=== PATIENT | male | born 1970 | race Caucasian/White ===

== ENCOUNTER 2016-09-28 20:04 | Emergency (ER) | payer MEDICAID ==
--- NOTE | 2016-09-28 20:06 | EDPHY ---
H & P - Medical/Surgical History Hx Asthma: No Hx Chronic Respiratory Disease: No Hx Diabetes: No Hx Cardiac Disease: No Hx Renal Disease: No Hx Cirrhosis: No Hx Alcoholism: Yes Hx HIV/AIDS: No Hx Splenectomy or Spleen Trauma: No Other PMH: denies - Social History Smoking Status: Current every day smoker Alcohol Use: Heavy HPI/ROS: CHIEF COMPLAINT: Intoxication HISTORY OF PRESENT ILLNESS: The patient is an intoxicated 46 y/o male arriving via EMS from the [facility] because he could not ambulate. His breathalyzer read 476 there, which is too high to stay there per their protocol. He has been here 6 times in the last 3 months for intoxication. He has no complaints. He can't tell me when he last had something to drink and thinks PD brought him to the [facility] tonight. REVIEW OF SYSTEMS: A ten point review of systems was performed and is negative with the exception of the items mentioned in the HPI. (Merlyn Stevenson) - Medical/Surgical History PMH: Alcoholism (Merlyn Stevenson) - Social History Additional Social History: 1 pack/day cigarettes. Alcohol abuse. (Merlyn Stevenson) - Physical Exam Exam: General Appearance: Alert. Vital signs reviewed. Blood pressure 146/92. Heart rate 105. Eyes: Pupils equal and round, bilateral conjunctival injection, no discharge. Anicteric. ENT, Mouth: Mucous membranes are dry, no oropharyngeal erythema or edema. Neck: No lymphadenopathy, supple. Nontender to palpation over the cervical spine. Respiratory: Lungs are clear to auscultation; no wheezes, rales, or rhonchi. Cardiovascular: Tachycardic; no murmur, rub, or gallop. Gastrointestinal: Abdomen is soft and mildly diffusely tender without guarding , no masses or organomegaly, bowel sounds normal. Skin: Warm and dry, no rashes on exposed skin, normal color. Back: Nontender to palpation over the thoracolumbar spine. Extremities: No lower extremity edema, no calf tenderness or swelling. Neurological: Alert and oriented to self and hospital. Moving all four extremities easily and equally. Psychiatric: Intoxicated. (Merlyn Stevenson) Constitutional: Initial Vital Signs Temperature (C) 36.7 C 09/28/16 20:11 Heart Rate 105 H 09/28/16 20:11 Respiratory Rate 20 09/28/16 20:11 Blood Pressure 146/92 H 09/28/16 20:11 O2 Sat (%) 92 09/28/16 20:11 O2 Delivery Mode Room Air O2 (L/minute) 2 Allergies/Adverse Reactions: No Known Allergies Allergy (Verified 08/18/16 17:33) Home Medications: Medication Instructions Recorded NK [No Known Home Meds] 06/23/16 Medical Decision Making ED Course/Re-evaluation: 1:38 a.m.- The patient is able to ambulate with a steady gait. He will be discharged to the [facility]. (Karen Boone) This is a 46 y/o male with alcoholism who presents from the [facility] with alcohol intoxication. He was unable to ambulate at the [facility] and apparently exceeded their breathalyzer limit at 476, so they transferred him to the ED. He denies complaints to me. He is mildly tachycardic with dry mucous membranes and conjunctival injection on exam. Repeat Breathalyzer here shortly after registration was 399. He is on an [facility] hold. Plan to observe and discharge to the [facility] when ambulatory. Re-evaluated at 11:15 p.m.. He is more awake now. He is requesting Sprite. He has not yet been able to safely ambulate. When ambulatory he will be discharged to the [facility]. (Merlyn Stevenson) Differential Diagnosis: I considered a differential diagnosis of altered mental status including but not limited to hypoglycemia, infectious process, electrolyte abnormality, head injury and intoxicants. (Merlyn Stevenson) Departure - Departure Disposition: Home, Routine, Self-Care Clinical Impression: Alcoholic intoxication Qualifiers: Complication of substance-induced condition: uncomplicated Qualifier Code: ( F10.120) Alcohol abuse with intoxication, uncomplicated Condition: Good Instructions: Alcohol Intoxication (ED), Abuse of Alcohol (ED) Additional Instructions: Medically clear for the [facility]. Referrals: [facility] Detox 24 Hours [Outside] - As per Instructions [facility] [Outside] - As per Instructions Report Scribed for: Merlyn Stevenson Report Scribed by: Moira Ferrara Date of Report: 09/28/16 Time of Report: 20:13 Physician Review and Approval Statement: 09/28/16 20:06 Portions of this note were transcribed by the medical or surgical instrument maker. I, Dr. Merlyn Stevenson, personally performed the history, physical exam, and medical decision- making; and confirmed the accuracy of the information in the transcribed note. ( Merlyn Stevenson)
[2016-09-28 20:15] VITALS: TEMP 98.1
[2016-09-29 01:49] VITALS: BP 117/66; PULSE 86; RESP 14; O2SAT 90
== END 2016-09-29 02:13 | disposition home or self-care (01) ==
LOC: EDUNIT#
DX: F10.120 Alcohol abuse with intoxication, uncomplicated (principal); F17.210 Nicotine dependence, cigarettes, uncomplicated

== ENCOUNTER 2016-10-05 22:24 | Emergency (ER) | payer MEDICAID ==
--- NOTE | 2016-10-05 22:39 | EDPHY ---
H & P Stated Complaint: ETOH "withdrwal", last drink 20 min ago, drinking 5th Gin daily - Personal History Current Tetanus Diphtheria and Acellular Pertussis (TDAP): Yes - Medical/Surgical History Hx Asthma: No Hx Chronic Respiratory Disease: No Hx Diabetes: No Hx Cardiac Disease: No Hx Renal Disease: No Hx Cirrhosis: No Hx Alcoholism: Yes Hx HIV/AIDS: No Hx Splenectomy or Spleen Trauma: No Other PMH: denies - Social History Smoking Status: Current every day smoker Time Seen by Provider: 10/05/16 22:39 Constitutional: Initial Vital Signs Temperature (C) 36.4 C 10/05/16 22:29 Heart Rate 68 10/05/16 22:29 Respiratory Rate 18 10/05/16 22:29 Blood Pressure 122/95 H 10/05/16 22:29 O2 Sat (%) 95 10/05/16 22:29 O2 Delivery Mode Room Air Allergies/Adverse Reactions: No Known Allergies Allergy (Verified 08/18/16 17:33) Home Medications: Medication Instructions Recorded NK [No Known Home Meds] 06/23/16 Medical Decision Making ED Course/Re-evaluation: CHIEF COMPLAINT: Alcohol intoxication. HISTORY OF PRESENT ILLNESS: The patient is a chronic alcoholic living on the [address]. Patient drinks on a daily basis and obtains whatever alcohol is available. Patient was found by bystanders who called EMS system. Patient has had multiple ER visits over the last several years for the same complaint. Patient denies any injuries denies loss of consciousness denies any recent trauma. Patient denies co-ingestion. Patient denies suicidal or homicidal behavior. REVIEW OF SYSTEMS: A 10 point review of systems was performed and is negative with the exception of the elements mentioned in the history of present illness. PHYSICAL EXAM: General Appearance: Alert, well hydrated, appropriate, and non-toxic appearing. Head: Atraumatic without scalp tenderness or obvious injury Eyes: Pupils equal, round, reactive to light and accommodation, EOMI, no trauma , no injection. Ears: Clear bilaterally, no perforation, normal landmarks Nose: Atraumatic, no rhinorrhea, clear. Throat: There is no erythema or exudates, no lesions, normal tonsils, mucus membranes moist. Neck: Supple, 2+ carotid upstroke, nontender, no lymphadenopathy. Respiratory: No retractions, no distress, no wheezes, and no accessory muscle use. Lungs are clear to auscultation bilaterally. Cardiovascular: Regular rate and rhythm, no murmurs, rubs, or gallops. Bilateral carotid, radial, dorsalis pedis, and posterior tibial pulses intact. Good capillary refill all extremities. Gastrointestinal: Abdomen is soft, nontender, non-distended, no masses, no rebound, no guarding, no peritoneal signs. Musculoskeletal: Normal active ROM of all extremities, atraumatic. Neurological: Alert, appropriate, and interactive. The patient has normal DTRs and non-focal cranial nerves, motor, sensory, and cerebellar exam. Skin: No rashes, good turgor, no nodules on palpation. PAST MEDICAL HISTORY: Alcohol abuse PAST SURGICAL HISTORY: Noncontributory SOCIAL HISTORY: Polysubstance abuser DIAGNOSTICS/PROCEDURES/CRITICAL CARE TIME: None necessary DIFFERENTIAL DIAGNOSIS: The differential diagnosis for the patient's altered mental status included but was not limited to hypoglycemia, infectious process, electrolyte abnormality, head injury, neurologic process, anemia, cardiac process, and intoxicants. MEDICAL DECISION MAKING: I serially examined this patient since the patient's arrival here in the emergency department. The patient continues to become more and more sober with each examination. I serially questioned the patient and the patient's story given initially has not changed. The patient still denies any trauma, any head injury, and any illicit drug use. At this point, the patient is walking the department freely and is clinically sober. We're discharging the patient to the [facility] in stable condition. (Howard Conley) 1237: re-evaluation at this time this patient ambulatory stable gait no ataxia clinically sober he is requesting go to detox. We will arrange this for him with [facility]. (Santana Griffith) Departure - Departure Disposition: Home, Routine, Self-Care Clinical Impression: Polysubstance abuse, Alcohol dependence, Alcoholic intoxication Condition: Good Referrals: NONE *PRIMARY CARE P,. [Primary Care Provider] - As per Instructions
[2016-10-06] MEDS ORDERED: CHLORDIAZEPOXIDE 25MG PREPK#6 BTL TAKEHOME ONE (00:37)
[2016-10-06 01:29] VITALS: BP 148/80; PULSE 82; RESP 16; TEMP 98.1; O2SAT 94
== END 2016-10-06 01:28 | disposition home or self-care (01) ==
LOC: EDUNIT#
DX: F10.229 Alcohol dependence with intoxication, unspecified (principal); F19.10 Other psychoactive substance abuse, uncomplicated; F17.200 Nicotine dependence, unspecified, uncomplicated

== ENCOUNTER 2016-10-21 02:19 | Emergency (ER) | payer MEDICAID ==
--- NOTE | 2016-10-21 02:44 | EDPHY ---
H & P HPI/ROS: HPI CHIEF COMPLAINT: Alcohol intoxication, head trauma HISTORY OF PRESENT ILLNESS: This patient 46-year-old male he is homeless, denies any significant medical history she is tells me that he drank vodka this evening. He somehow injured his head. Does not recall the exact events he thinks he fell on his head. Presents emergency room he is alert and orient x4, GCS 15, he has been placed in a cervical collar for cervical spine immobilization case he has neck trauma. He has an obvious hematoma to the posterior occiput on the left side. He is slurring his speech and is obviously intoxicated. Denies drug use. Denies pain anywhere. Past Medical History: Denies any medical history Past Surgical History: Denies any surgical history Social History: drank alcohol this evening, daily alcohol use, alcoholism, homelessness Family History: Noncontributory ROS REVIEW OF SYSTEMS: A comprehensive 10 point review of systems is otherwise negative aside from elements mentioned in the history of present illness. Exam Constitutional intoxicated with alcohol, triage nursing summary reviewed, vital signs reviewed, awake/alert. Eyes normal conjunctivae and sclera, EOMI, Horizontal beating nystagmus consistent with acute alcohol intoxication. HENT head/neck: Hematoma noted to the left occiput. Neck exam, no midline step-offs, no crepitus, in cervical collar. moist mucus membranes, no epistaxis , neck supple/ no meningismus, no raccoon eyes. Respiratory clear to auscultation bilaterally, normal breath sounds, no respiratory distress, no wheezing. Cardiovascular rate normal, regular rhythm, no murmur, no edema, distal pulses normal. Gastrointestinal soft, non-tender, no rebound, no guarding, normal bowel sounds, no distension, no pulsatile mass. Genitourinary no CVA tenderness. Musculoskeletal no midline vertebral tenderness, full range of motion, no calf swelling, no tenderness of extremities, no meningismus, good pulses, neurovascularly intact. Skin pink, warm, & dry, no rash, skin atraumatic. Neurologic awake, alert and oriented x 3, AAOx3, moves all 4 extremities equally, motor intact, sensory intact, CN II-XII intact, normal cerebellar, normal vision, slurring speech Psychiatric normal mood/affect. Heme/Lymph/Immune no lymphadenopathy. Differential Diagnosis: Includes but is not limited to in a particular order acute alcohol intoxication,, alcohol abuse, trauma including head trauma, cervical spine trauma Medical Decision Making: this patient had an IV established receive fluids Bolus , will check alcohol level, he will have a CT scan of his head and neck due to trauma. Re-evaluation: CT scan of the head without IV contrast. The results of the study are negative for acute traumatic injury. The study was read by Dr. Benjamin I viewed the images myself on the PACS system. CT scan of the cervical spine without IV contrast. The results of the study are negative for acute traumatic injury The study was read by Dr. Benjamin I viewed the images myself on the PACS system. 0510: re-examination patient is sitting up in bed is, cooperative. He is not slurring his speech he appears clinically sober. I have cleared his cervical spine as he has no midline tenderness in his CT scan was unremarkable. He has no complaints he is agreeable for discharge. He ambulated well without any difficulty. He understands to refrain from drinking this much alcohol. 0528: this patient ambulated well throughout the emergency room is clinically sober. Steady gait. He will be discharged from the ER when it slight out at 6: 30 a.m.. I did offer him to go to the [facility] however he has declined. He would like to be discharged to the streets he is homeless. Source: Patient, EMS - Medical/Surgical History Hx Asthma: No Hx Chronic Respiratory Disease: No Hx Diabetes: No Hx Cardiac Disease: No Hx Renal Disease: No Hx Cirrhosis: No Hx Alcoholism: Yes Hx HIV/AIDS: No Hx Splenectomy or Spleen Trauma: No Other PMH: denies - Social History Smoking Status: Current every day smoker Constitutional: Initial Vital Signs Temperature (C) 36.4 C 10/21/16 02:30 Heart Rate 68 10/21/16 02:30 Respiratory Rate 16 10/21/16 02:30 Blood Pressure 118/83 H 10/21/16 02:30 O2 Sat (%) 91 L 10/21/16 02:30 O2 Delivery Mode Nasal Cannula O2 (L/minute) 2 Allergies/Adverse Reactions: No Known Allergies Allergy (Verified 10/21/16 02:45) Home Medications: Medication Instructions Recorded NK [No Known Home Meds] 06/23/16 Medical Decision Making - Data Points Laboratory Results: Laboratory Results 10/21/16 03:00 10/21/16 03:00 10/21/16 03:00 WBC 3.65 L 10^3/uL (3.80-9.50) RBC 4.29 L 10^6/uL (4.40-6.38) Hgb 14.9 g/dL (13.7-17.5) Hct 42.3 % (40.0-51.0) MCV 98.6 fL (81.5-99.8) MCH 34.7 H pg (27.9-34.1) MCHC 35.2 g/dL (32.4-36.7) RDW 13.4 % (11.5-15.2) Plt Count 133 L 10^3/uL (150-400) MPV 8.7 fL (8.7-11.7) Neut % (Auto) 41.0 % (39.3-74.2) Lymph % (Auto) 38.4 % (15.0-45.0) [place] % (Auto) 12.9 % (4.5-13.0) Eos % (Auto) 6.3 % (0.6-7.6) Baso % (Auto) 1.1 % (0.3-1.7) Nucleat RBC Rel Count 0.0 % (0.0-0.2) Absolute Neuts (auto) 1.50 L 10^3/uL (1.70-6.50) Absolute Lymphs (auto) 1.40 10^3/uL (1.00-3.00) Absolute Monos (auto) 0.47 10^3/uL (0.30-0.80) Absolute Eos (auto) 0.23 10^3/uL (0.03-0.40) Absolute Basos (auto) 0.04 10^3/uL (0.02-0.10) Absolute Nucleated RBC 0.00 10^3/uL (0-0.01) Immature Gran % 0.3 % (0.0-1.1) Immature Gran # 0.01 10^3/uL (0.00-0.10) Sodium 148 H mEq/L (134-144) Potassium 3.7 mEq/L (3.5-5.2) Chloride 111 H mEq/L (97-110) Carbon Dioxide 26 mEq/l (22-31) Anion Gap 11 mEq/L (8-16) BUN 10 mg/dL (7-23) Creatinine 0.7 mg/dL (0.7-1.3) Estimated GFR > 60 Glucose 100 mg/dL (70-100) Calcium 8.6 mg/dL (8.5-10.4) Ethyl Alcohol 322 H mg/dL (0-10) Medications Given: Discontinued Medications Sodium Chloride (Ns) 1,000 mls @ 0 mls/hr IV ONCE ONE PRN Reason: Wide Open Stop: 10/21/16 02:49 Last Admin: 10/21/16 03:00 Dose: 1,000 mls Departure - Departure Disposition: Home, Routine, Self-Care Clinical Impression: Alcoholic intoxication Qualifiers: Complication of substance-induced condition: uncomplicated Qualifier Code: ( F10.120) Alcohol abuse with intoxication, uncomplicated Condition: Good Instructions: Alcohol Intoxication (ED), Abuse of Alcohol (ED), Fall Prevention (ED), Fall Prevention for Older Adults (ED) Referrals: NONE *PRIMARY CARE P,. [Primary Care Provider] - As per Instructions
[2016-10-21 02:48] VITALS: RESP 16
[2016-10-21] MEDS ORDERED: NS 1,000 ML IV ONE (02:48)
[2016-10-21 03:20] LABS: % IMMATURE GRANULYOCYTES 0.3 % (0.0-1.1); ABSOLUTE IMMATURE GRANULOCYTES 0.01 10^3/uL (0.00-0.10); ADD DIFF? NO; ADD MORPH? NO; ADD SCAN? NO; ATYPICAL LYMPHOCYTE FLAG 0 (0-99); FRAGMENT RBC FLAG 0 (0-99); HEMATOCRIT 42.3 % (40.0-51.0); HEMOGLOBIN 14.9 g/dL (13.7-17.5); LEFT SHIFT FLG 0 (0-99); LIPEMIA HEMOLYSIS FLAG 90 (0-99); MEAN CELL HEMOGLOBIN 34.7 pg (27.9-34.1); MEAN CELL HEMOGLOBIN CONCENTR. 35.2 g/dL (32.4-36.7); MEAN CELL VOLUME 98.6 fL (81.5-99.8); MEAN PLATELET VOLUME 8.7 fL (8.7-11.7); PLATELET CLUMPS FLAG 0 (0-99); PLATELET COUNT 133 10^3/uL (150-400); RED BLOOD CELL COUNT 4.29 10^6/uL (4.40-6.38); RED CELL DISTRIBUTION WIDTH 13.4 % (11.5-15.2)
[2016-10-21 03:31] LABS: ANION GAP 11 mEq/L (8-16); CALCIUM 8.6 mg/dL (8.5-10.4); CARBON DIOXIDE 26 mEq/l (22-31); CHLORIDE 111 mEq/L (97-110); CREATININE 0.7 mg/dL (0.7-1.3); GLOMERULAR FILTRATION RATE > 60; GLUCOSE 100 mg/dL (70-100); POTASSIUM 3.7 mEq/L (3.5-5.2); SODIUM 148 mEq/L (134-144)
[2016-10-21 03:40] LABS: ETHANOL SERUM 322 mg/dL (0-10)
[2016-10-21 06:49] VITALS: TEMP 98.1
[2016-10-21 07:00] VITALS: BP 112/87; PULSE 79; O2SAT 96
--- NOTE | 2016-10-21 16:38 | CT ---
CT Head Without Contrast History: Head trauma, fall, hit back of head, ETOH intoxification. Comparison: CT head dated August 18, 2016. Technique: Soft tissue and bone window evaluation is performed. Dose reduction techniques were utilized. Findings: There is no intracranial hemorrhage. There is specifically no parenchymal, subarachnoid, subdural, or epidural hemorrhage. There is no midline shift or hydrocephalus. The ambient cistern is patent. The brain is stable since August 2016. There is no skull fracture or pneumocephalus. The paranasal and mastoid sinuses and both middle ears are normally aerated. Impression: Nothing acute identified. Results discussed with Dr. Griffith at 4:00 a.m. Final results are concordant with the initial interpretation. [id number] POS 99 MTDD
--- NOTE | 2016-10-21 16:39 | CT ---
CT Cervical Spine Without Contrast History: Head trauma, fall, hit back of head, ETOH intoxification. Technique: Multislice helical CT through the cervical spine without contrast from the skull base to T1. Soft tissue and bone evaluation is performed. Sagittal and coronal reconstructions are obtained and reviewed. Dose reduction techniques were utilized. Findings: No fracture or dislocation is identified. No obvious soft pathology. There are small posterior osteophytes present between C3 and C5. Facet joints are normally aligned. There is mild arthritic change of the joint between the anterior ring of C1 and the odontoid process. The craniocervical junction is normal. Impression: Nothing acute identified. Results called to Dr. Griffith at 4:00 a.m. Final results are concordant with the initial interpretation. [id number] POS 99 MTDD
== END 2016-10-21 07:00 | disposition home or self-care (01) ==
LOC: EDUNIT#
DX: F10.120 Alcohol abuse with intoxication, uncomplicated (principal); F17.200 Nicotine dependence, unspecified, uncomplicated
CPT/HCPCS: G0480

== ENCOUNTER 2016-10-21 20:01 | Emergency (ER) | payer MEDICAID ==
--- NOTE | 2016-10-21 20:08 | EDPHY ---
HPI/HX/ROS/PE/MDM Narrative: CHIEF COMPLAINT: Intoxication, vomiting HPI: The patient is a 46 y/o male arriving via EMS on an [facility] hold for evaluation after he was found intoxicated in the grocery store [employer]. EMS found him in [employer] next to a nearly empty vodka bottle with a "blank stare." He has a wrist band that shows he was seen in the ED recently. EMS notes swollen hands and ankles, but no obvious trauma. EMS BGL was 104 and 4mg IV Zofran administered for vomiting. REVIEW OF SYSTEMS: Aside from elements discussed in the HPI, a comprehensive 10-point review of systems was reviewed and is negative. PMH: Alcoholism SOCIAL HISTORY: Alcohol abuse PHYSICAL EXAM: General:Patient is somnolent, in no acute distress. ENT:Eyes are normal to inspection. Pupils 3mm reactive. ENT inspection normal. Neck: Normal inspection. Full range of motion. Respiratory:No respiratory distress. Breath sounds normal bilaterally. Cardiovascular: Regular rate and rhythm. Strong peripheral pulses. Normal cap refill. Abdomen:The abdomen is nontender to palpation. There are no peritoneal signs. There are normal bowel sounds. Back: Normal to inspection. No tenderness to palpation. Skin: Normal color. No rash. Warm and dry. Extremities: Normal appearance. Full range of motion. Neuro: Oriented x1. Movement in all extremities. MDM: This patient presents with severe alcohol intoxication with long history of the same. There is no history nor clinical evidence of trauma. The patient will be observed in the emergency department till sober enough to be transported [facility] I signed the patient out to Dr. Griffith at 11:00 p.m.. I see no signs of stroke, hypoglycemia or infectious process. General Initial Vital Signs: Initial Vital Signs O2 Sat (%) 96 10/21/16 20:05 O2 Delivery Mode Nasal Cannula O2 (L/minute) 3 Allergies/Adverse Reactions: No Known Allergies Allergy (Verified 10/21/16 02:45) Home Medications: Medication Instructions Recorded NK [No Known Home Meds] 06/23/16 Departure - Departure Disposition: Home, Routine, Self-Care Clinical Impression: Alcoholic intoxication Qualifiers: Complication of substance-induced condition: uncomplicated Qualifier Code: ( F10.120) Alcohol abuse with intoxication, uncomplicated Condition: Good Instructions: Alcohol Intoxication (ED) Additional Instructions: Go directly to the [facility] for detox. Referrals: [facility] Detox 24 Hours [Outside] - As per Instructions Report Scribed for: Rl Escobar Report Scribed by: Moira Ferrara Date of Report: 10/21/16 Time of Report: 20:08 Physician Review and Approval Statement: Portions of this note were transcribed by an ED scribe. I personally performed the history, physical exam, and medical decision making; and confirm the accuracy of the information in the transcribed note.
[2016-10-21 20:15] VITALS: TEMP 98.8
[2016-10-22 00:07] VITALS: BP 110/78; PULSE 90; RESP 18; O2SAT 93
[2016-10-22] MEDS ORDERED: CHLORDIAZEPOXIDE 25MG PREPK#6 BTL TAKEHOME ONE ×2 (01:20→01:30)
== END 2016-10-22 01:25 | disposition home or self-care (01) ==
LOC: EDUNIT#
DX: F10.120 Alcohol abuse with intoxication, uncomplicated (principal)

== ENCOUNTER 2016-10-23 21:58 | Emergency (ER) | payer MEDICAID ==
--- NOTE | 2016-10-23 22:11 | EDPHY ---
H & P HPI/ROS: HPI CHIEF COMPLAINT: Alcohol intoxication HISTORY OF PRESENT ILLNESS: This patient 46-year-old male, homeless, presents to the emergency room with acute alcohol intoxication. Patient was brought in by EMS and police he was found lying down on the ground With a bottle of vodka next to him. Upon arrival here in emergency room the patient is highly intoxicated with alcohol. He is slurring his speech. He did vomit once. No reported trauma. Past Medical History: Denies significant medical history except for alcoholism Past Surgical History: Denies any significant surgical history Social History: daily use of alcohol, homeless Family History: noncontributory ROS REVIEW OF SYSTEMS: A comprehensive 10 point review of systems is otherwise negative aside from elements mentioned in the history of present illness. Exam Constitutional intoxicated, triage nursing summary reviewed, vital signs reviewed, awake/alert, smells of alcohol Eyes normal conjunctivae and sclera, horizontal beating nystagmus, PERRLA. HENT normal inspection, atraumatic, moist mucus membranes, no epistaxis, neck supple/ no meningismus, no raccoon eyes. Respiratory clear to auscultation bilaterally, normal breath sounds, no respiratory distress, no wheezing. Cardiovascular rate normal, regular rhythm, no murmur, no edema, distal pulses normal. Gastrointestinal soft, non-tender, no rebound, no guarding, normal bowel sounds, no distension, no pulsatile mass. Genitourinary no CVA tenderness. Musculoskeletal no midline vertebral tenderness, full range of motion, no calf swelling, no tenderness of extremities, no meningismus, good pulses, neurovascularly intact. Skin pink, warm, & dry, no rash, skin atraumatic. Neurologic awake, alert and oriented x 3, AAOx3, moves all 4 extremities equally, motor intact, sensory intact, CN II-XII intact, normal vision, slurring speech Psychiatric normal mood/affect. Heme/Lymph/Immune no lymphadenopathy. Differential Diagnosis: includes but is not limited to in a particular order acute alcohol intoxication, alcohol abuse, dehydration, electrolyte abnormality Medical Decision Making: This patient had an IV established will obtain blood work, patient be given a fluid bolus and 4 mg IV Zofran. We will check alcohol level. Will monitor closely on monitor for sobriety. Re-evaluation: 2258: Serum alcohol is 520. 0557: patient is up ambulating throughout the emergency room without any difficulty. He has a steady gait. He is clinically sober. He will be dispositioned appropriately to [facility]. Source: Patient, Police, EMS - Medical/Surgical History Hx Asthma: No Hx Chronic Respiratory Disease: No Hx Diabetes: No Hx Cardiac Disease: No Hx Renal Disease: No Hx Cirrhosis: No Hx Alcoholism: Yes Hx HIV/AIDS: No Hx Splenectomy or Spleen Trauma: No Other PMH: denies - Social History Smoking Status: Current every day smoker Constitutional: Initial Vital Signs Temperature (C) 36.5 C 10/23/16 22:00 Heart Rate 80 10/23/16 22:00 Respiratory Rate 16 10/23/16 22:00 Blood Pressure 147/103 H 10/23/16 22:00 O2 Sat (%) 97 10/23/16 22:00 O2 Delivery Mode Nasal Cannula O2 (L/minute) 2 Allergies/Adverse Reactions: No Known Allergies Allergy (Verified 10/23/16 22:12) Home Medications: Medication Instructions Recorded NK [No Known Home Meds] 06/23/16 Medical Decision Making - Data Points Laboratory Results: 10/23/16 22:05 Ethyl Alcohol 520 H* mg/dL (0-10) Medications Given: Discontinued Medications Sodium Chloride (Ns) 1,000 mls @ 0 mls/hr IV ONCE ONE PRN Reason: Wide Open Stop: 10/23/16 22:15 Last Admin: 10/23/16 22:15 Dose: 1,000 mls Ondansetron HCl (Zofran) 4 mg IVP EDNOW ONE Stop: 10/23/16 22:15 Last Admin: 10/23/16 22:15 Dose: 4 mg Departure - Departure Disposition: Home, Routine, Self-Care Clinical Impression: Alcoholic intoxication Qualifiers: Complication of substance-induced condition: uncomplicated Qualifier Code: ( F10.120) Alcohol abuse with intoxication, uncomplicated Condition: Good Instructions: Chlordiazepoxide/Clidinium (By mouth), Alcohol Intoxication (ED) , Abuse of Alcohol (ED) Referrals: NONE *PRIMARY CARE P,. [Primary Care Provider] - As per Instructions
[2016-10-23 22:13] VITALS: RESP 16
[2016-10-23] MEDS ORDERED: ONDANSETRON 4 MG/2 ML VIAL IVP ONE (22:14)
[2016-10-23] MEDS ORDERED: NS 1,000 ML IV ONE (22:14)
[2016-10-23 22:56] LABS: ETHANOL SERUM 520 mg/dL (0-10)
[2016-10-24] MEDS ORDERED: CHLORDIAZEPOXIDE 25MG PREPK#6 BTL TAKEHOME ONE (05:56)
[2016-10-24 06:04] VITALS: BP 118/81; PULSE 73; TEMP 97.5; O2SAT 98
== END 2016-10-24 07:50 | disposition home or self-care (01) ==
LOC: EDUNIT#
DX: F10.120 Alcohol abuse with intoxication, uncomplicated (principal); F17.200 Nicotine dependence, unspecified, uncomplicated
CPT/HCPCS: 96374; G0480; J2405

== ENCOUNTER 2016-10-28 02:25 | Emergency (ER) | payer MEDICAID ==
--- NOTE | 2016-10-28 02:27 | EDPHY ---
H & P Time Seen by Provider: 10/28/16 02:26 HPI/ROS: CHIEF COMPLAINT: Alcohol intoxication HISTORY OF PRESENT ILLNESS: Patient was found by bystanders to be severely intoxicated, outside of a grocery store parking lot, he was unable to walk and therefore they called EMS system. Patient denies any injuries, denies loss of consciousness, denies any recent trauma. Patient denies coingestion, patient denies suicidal or homicidal behavior. REVIEW OF SYSTEMS: Constitutional: No fever, no chills. Eyes:No visual changes. ENT: No sore throat. Respiratory: No cough, no shortness of breath. Cardiac: No chest pain. Gastrointestinal: No abdominal pain, vomiting or diarrhea. Genitourinary: No hematuria. Musculoskeletal: No back pain. Skin: No rashes. Neurological: No headache. PAST MEDICAL HISTORY: Multiple visits for alcohol abuse PAST SURGICAL HISTORY: None SOCIAL HISTORY: Alcohol, homelessness PHYSICAL EXAM: General Appearance: Alert, well hydrated, appropriate, and non-toxic appearing. Head: Atraumatic without scalp tenderness or obvious injury Eyes: Pupils equal, round, reactive to light, no injection. Ears: Clear bilaterally, no perforation, normal landmarks Nose: Atraumatic, no rhinorrhea, clear. Throat: mucus membranes moist. Neck: Supple, non-tender, no lymphadenopathy. Respiratory: No retractions, no distress, no wheezes, and no accessory muscle use. Lungs are clear to auscultation bilaterally. Cardiovascular: Regular rate and rhythm, no murmurs, rubs, or gallops. Gastrointestinal: Abdomen is soft, non-tender, non-distended Musculoskeletal: Normal active ROM of all extremities, atraumatic. Neurological: Alert, appropriate, and interactive. Moves all extremities equally. Skin: No rashes, good turgor, no nodules on palpation. MEDICAL DECISION MAKING: I serially examined this patient since the patient's arrival here in the emergency department. The patient continues to become more and more sober with each examination. I serially questioned the patient and the patient's story given initially has not changed. The patient still denies any trauma, any head injury, and any illicit drug use. At this point, the patient is walking the department freely and is clinically sober. We're discharging the patient to the [facility] in stable condition. Source: EMS - Medical/Surgical History Hx Asthma: No Hx Chronic Respiratory Disease: No Hx Diabetes: No Hx Cardiac Disease: No Hx Renal Disease: No Hx Cirrhosis: No Hx Alcoholism: Yes Hx HIV/AIDS: No Hx Splenectomy or Spleen Trauma: No Other PMH: denies - Social History Smoking Status: Current every day smoker Allergies/Adverse Reactions: No Known Allergies Allergy (Verified 10/23/16 22:12) Home Medications: Medication Instructions Recorded NK [No Known Home Meds] 06/23/16
[2016-10-28 02:32] VITALS: RESP 16; TEMP 97.9
[2016-10-28 05:03] VITALS: BP 118/74; PULSE 71; O2SAT 93
== END 2016-10-28 05:03 | disposition home or self-care (01) ==
LOC: EDUNIT#
DX: F10.129 Alcohol abuse with intoxication, unspecified (principal); F17.200 Nicotine dependence, unspecified, uncomplicated

== ENCOUNTER 2016-11-11 01:54 | Emergency (ER) | payer MEDICAID ==
[2016-11-11 02:03] VITALS: RESP 12; TEMP 97.5
--- NOTE | 2016-11-11 02:06 | EDPHY ---
H & P Stated Complaint: ETOH intoxication Time Seen by Provider: 11/11/16 02:03 HPI/ROS: Chief complaint: Intoxication HPI: 46-year-old male [place] Bystanders called EMS. On EMS arrival the patient admitted to drinking alcohol. He was unable to ambulate and was brought here for further evaluation. Patient denies any recent injuries. Has not fallen or hit his head. No chest pain or shortness of breath. No abdominal pain. Patient admits to having been drinking significant amounts of alcohol this morning. ROS: 10 point Review of Systems is negative except as noted in the HPI. Past medical history: Patient denies Medications: Patient denies Allergies: Patient denies Physical exam: Gen: Somnolent, arousable, maintaining airway, smells strongly of alcohol HEENT: Nose: no rhinorrhea Eyes: PERRLA, EOMI Mouth: Moist mucosa Neck: Supple, no JVD Chest: nontender, lungs clear to auscultation Heart: S1, S2 normal, no murmur Abd: Soft, non-tender, no guarding Back: no CVA tenderness, no midline tenderness Ext: no edema, non-tender Skin: no rash Neuro: CN II-XII intact, Sensation grossly intact, Strength 5/5 in bilateral upper and lower extremities - Personal History Current Tetanus/Diphtheria Vaccine: Unsure Current Tetanus Diphtheria and Acellular Pertussis (TDAP): Unsure - Medical/Surgical History Hx Asthma: No Hx Chronic Respiratory Disease: No Hx Diabetes: No Hx Cardiac Disease: No Hx Renal Disease: No Hx Cirrhosis: No Hx Alcoholism: Yes Hx HIV/AIDS: No Hx Splenectomy or Spleen Trauma: No Other PMH: alcoholism - Social History Smoking Status: Current every day smoker Constitutional: Initial Vital Signs Temperature (C) 36.4 C 11/11/16 02:01 Heart Rate 76 11/11/16 02:01 Respiratory Rate 12 11/11/16 02:01 Blood Pressure 126/90 H 11/11/16 02:01 O2 Sat (%) 86 L 11/11/16 02:01 O2 Delivery Mode Room Air O2 (L/minute) 2 Allergies/Adverse Reactions: No Known Allergies Allergy (Verified 10/28/16 02:29) Home Medications: Medication Instructions Recorded NK [No Known Home Meds] 06/23/16 Medical Decision Making ED Course/Re-evaluation: Patient is ambulating unassisted in the emergency department. He is awake alert and answering questions. He is medically cleared for discharge. Departure - Departure Disposition: Home, Routine, Self-Care Clinical Impression: Alcoholic intoxication Condition: Good Instructions: Alcohol Intoxication (ED) Additional Instructions: Please try to decrease your alcohol consumption. Referrals: NONE *PRIMARY CARE P,. [Primary Care Provider] - As per Instructions [facility],. [Clinic] - As per Instructions
[2016-11-11] MEDS ORDERED: CHLORDIAZEPOXIDE 25MG PREPK#6 BTL TAKEHOME ONE (06:01)
[2016-11-11 06:22] VITALS: BP 93/54; PULSE 76; O2SAT 91
== END 2016-11-11 06:21 | disposition home or self-care (01) ==
LOC: EDUNIT#
DX: F10.129 Alcohol abuse with intoxication, unspecified (principal); F17.200 Nicotine dependence, unspecified, uncomplicated

== ENCOUNTER 2016-11-19 20:11 | Emergency (ER) | payer MEDICAID ==
--- NOTE | 2016-11-19 20:12 | EDPHY ---
H & P Time Seen by Provider: 11/19/16 20:12 Constitutional: Initial Vital Signs Temperature (C) 36.5 C 11/19/16 20:19 Heart Rate 70 11/19/16 20:19 Respiratory Rate 16 11/19/16 20:19 Blood Pressure 130/96 H 11/19/16 20:19 O2 Sat (%) 90 L 11/19/16 20:19 O2 Delivery Mode Nasal Cannula O2 (L/minute) 1 Allergies/Adverse Reactions: No Known Allergies Allergy (Verified 10/28/16 02:29) Home Medications: Medication Instructions Recorded NK [No Known Home Meds] 06/23/16 Medical Decision Making ED Course/Re-evaluation: CHIEF COMPLAINT: Alcohol intoxication. HISTORY OF PRESENT ILLNESS: The patient is a chronic alcoholic living on the street. Patient drinks on a daily basis and obtains whatever alcohol is available. Patient was found by bystanders who called EMS system. Patient has had multiple ER visits over the last several years for the same complaint. Patient denies any injuries denies loss of consciousness denies any recent trauma. Patient denies co-ingestion. Patient denies suicidal or homicidal behavior. REVIEW OF SYSTEMS: A 10 point review of systems was performed and is negative with the exception of the elements mentioned in the history of present illness. PHYSICAL EXAM: General Appearance: Alert, well hydrated, appropriate, and non-toxic appearing. Head: Atraumatic without scalp tenderness or obvious injury Eyes: Pupils equal, round, reactive to light and accommodation, EOMI, no trauma , no injection. Ears: Clear bilaterally, no perforation, normal landmarks Nose: Atraumatic, no rhinorrhea, clear. Throat: There is no erythema or exudates, no lesions, normal tonsils, mucus membranes moist. Neck: Supple, 2+ carotid upstroke, nontender, no lymphadenopathy. Respiratory: No retractions, no distress, no wheezes, and no accessory muscle use. Lungs are clear to auscultation bilaterally. Cardiovascular: Regular rate and rhythm, no murmurs, rubs, or gallops. Bilateral carotid, radial, dorsalis pedis, and posterior tibial pulses intact. Good capillary refill all extremities. Gastrointestinal: Abdomen is soft, nontender, non-distended, no masses, no rebound, no guarding, no peritoneal signs. Musculoskeletal: Normal active ROM of all extremities, atraumatic. Neurological: Alert, appropriate, and interactive. The patient has normal DTRs and non-focal cranial nerves, motor, sensory, and cerebellar exam. Skin: No rashes, good turgor, no nodules on palpation. PAST MEDICAL HISTORY: Denies. PAST SURGICAL HISTORY:Denies. SOCIAL HISTORY: Alcoholism. DIFFERENTIAL DIAGNOSIS: The differential diagnosis for the patient includes but is not limited to: alcohol intoxication, benzodiazepine abuse, polysubstance abuse. MEDICAL DECISION MAKING: I serially examined this patient since the patient's arrival here in the emergency department. The patient continues to become more and more sober with each examination. 2215: Reassessed patient. I queried him as to whether he felt comfortable walking but he fell asleep and is still intoxicated. He will be monitored further in the ED. 2227: Patient has ambulated well. He will be discharged. I serially questioned the patient and the patient's story given initially has not changed. The patient still denies any trauma, any head injury, and any illicit drug use. At this point, the patient is walking the department freely and is clinically sober. We're discharging the patient to the [facility] in stable condition. Departure - Departure Disposition: Home, Routine, Self-Care Clinical Impression: Alcohol intoxication Qualifiers: Complication of substance-induced condition: uncomplicated Qualified Code(s): F10.120 - Alcohol abuse with intoxication, uncomplicated Condition: Good Instructions: Alcohol Intoxication (ED) Additional Instructions: Return for any serious worsening of condition. Referrals: [facility] Detox 24 Hours [Outside] - As per Instructions Report Scribed for: Howard Conley Report Scribed by: Alexander Schreiber Date of Report: 11/19/16 Time of Report: 20:22
[2016-11-19] MEDS ORDERED: CHLORDIAZEPOXIDE 25MG PREPK#6 BTL TAKEHOME ONE (22:27)
[2016-11-19 23:05] VITALS: BP 110/81; PULSE 75; RESP 20; TEMP 98.1; O2SAT 92
== END 2016-11-19 23:05 | disposition home or self-care (01) ==
LOC: EDUNIT#
DX: F10.120 Alcohol abuse with intoxication, uncomplicated (principal)

== ENCOUNTER 2016-12-01 04:02 | Emergency (ER) | payer MEDICAID ==
[2016-12-01] MEDS ORDERED: chlordiazePOXIDE 25 MG CAP PO ONE (04:05)
[2016-12-01] MEDS ORDERED: CHLORDIAZEPOXIDE 25MG PREPK#6 BTL TAKEHOME ONE ×2 (04:57→04:58)
--- NOTE | 2016-12-01 04:58 | EDPHY ---
H & P Stated Complaint: withdrawal Time Seen by Provider: 12/01/16 04:19 HPI/ROS: HPI The patient presents with concern for alcohol withdrawal. He is brought in by ambulance after flagged down a police while he was out on the street. He said he was feeling like he might have a seizure and that he was going into alcohol withdrawal. He was feeling shaky. His last drink was about 3 hours ago and he is a daily heavy drinker. He is well known to this emergency room for alcohol intoxication. He tells me that he feels shaky and that is his main complaint. REVIEW OF SYSTEMS Constitutional: No fever, no chills. Skin: No rashes. Neurological: No headache. PMHx: Alcohol abuse Soc Hx: Alcohol, homeless PHYSICAL General Appearance: Alert, no distress, disheveled Eyes: Pupils equal and round no pallor or injection ENT, Mouth: Mucous membranes moist Respiratory: There are no retractions, lungs are clear to auscultation Cardiovascular: Regular rate and rhythm Gastrointestinal: Abdomen is soft and non-tender, no masses, bowel sounds normal Neurological: A&O, moves all extremities, no tongue wag present, no tremors, though he does seem to be voluntarily shaking his right hand Skin: Warm and dry, no rashes Musculoskeletal: Neck is supple non tender Extremities: symmetrical, full range of motion Psychiatric: Patient is oriented X 3, there is no agitation Source: Patient, EMS - Personal History Current Tetanus/Diphtheria Vaccine: Unsure Current Tetanus Diphtheria and Acellular Pertussis (TDAP): Unsure - Medical/Surgical History Hx Asthma: No Hx Chronic Respiratory Disease: No Hx Diabetes: No Hx Cardiac Disease: No Hx Renal Disease: No Hx Cirrhosis: No Hx Alcoholism: Yes Hx HIV/AIDS: No Hx Splenectomy or Spleen Trauma: No Other PMH: alcoholism - Social History Smoking Status: Current every day smoker Constitutional: Initial Vital Signs Temperature (C) 36.7 C 12/01/16 04:07 Heart Rate 73 12/01/16 04:07 Respiratory Rate 16 12/01/16 04:07 Blood Pressure 130/82 H 12/01/16 04:07 O2 Sat (%) 94 12/01/16 04:07 O2 Delivery Mode Room Air Allergies/Adverse Reactions: No Known Allergies Allergy (Verified 10/28/16 02:29) Home Medications: Medication Instructions Recorded NK [No Known Home Meds] 06/23/16 Medical Decision Making Differential Diagnosis: This is a 46-year-old male, well known to this emergency room for alcohol- related complaints, who presents brought in by ambulance for concern for alcohol withdrawal. On exam, he has normal vital signs and is not demonstrating any signs of alcohol withdrawal, though his last drink was 3 hours ago, and he is certainly at risk. [facility], we will give him a prescription for Librium to go there with. He was given a single dose of Librium here as well. - Data Points Medications Given: Discontinued Medications Chlordiazepoxide HCl (Librium) 25 mg PO EDNOW ONE Stop: 12/01/16 04:06 Last Admin: 12/01/16 04:09 Dose: 25 mg Departure - Departure Disposition: Home, Routine, Self-Care Clinical Impression: Alcoholic intoxication Qualifiers: Complication of substance-induced condition: with unspecified complication Qualified Code(s): F10.129 - Alcohol abuse with intoxication, unspecified Condition: Good Instructions: Abuse of Alcohol (ED) Referrals: [facility] 24 Hours [Outside] - As per Instructions
[2016-12-01 05:08] VITALS: BP 120/76; PULSE 79; RESP 12; TEMP 97.7; O2SAT 92
== END 2016-12-01 05:07 | disposition home or self-care (01) ==
LOC: EDUNIT#
DX: F10.129 Alcohol abuse with intoxication, unspecified (principal); F17.200 Nicotine dependence, unspecified, uncomplicated

== ENCOUNTER 2016-12-23 21:56 | Emergency (ER) | payer MEDICAID ==
[2016-12-23] MEDS ORDERED: NS 1,000 ML IV ONE (22:37)
--- NOTE | 2016-12-23 22:40 | EDPHY ---
H & P Stated Complaint: Alcohol withdrawal Time Seen by Provider: 12/23/16 22:22 HPI/ROS: HPI The patient presents brought in by ambulance with concern for alcohol withdrawal. Complains that he "can't stop shaking. He asked a bystander on the street to call 911 because he was feeling this way. His last alcoholic drink was sometime in the gig [place] and he has been drinking 2 pt of hard alcohol a day. His shaking began at about 2:00 p.m. today. He says he does not feel confused. He does feel somewhat anxious. He has not had any vomiting. He complains of a generalized throbbing headache. He says he stopped drinking because he ran out of money. He has multiple ER visits for similar complaints. REVIEW OF SYSTEMS Constitutional: No fever, no chills. Eyes: No discharge. ENT: No sore throat. Cardiovascular: No chest pain, no palpitations. Respiratory: No cough, no shortness of breath. Gastrointestinal: No abdominal pain, no vomiting. Genitourinary: No hematuria. Musculoskeletal: No back pain. Skin: No rashes. Neurological: + headache. PMHx: Chronic alcohol abuse Soc Hx: Polysubstance abuse, homeless PHYSICAL General Appearance: Alert, somewhat anxious Eyes: Pupils equal and round no pallor or injection ENT, Mouth: Mucous membranes dry Respiratory: There are no retractions, lungs are clear to auscultation Cardiovascular: Regular rate and rhythm Gastrointestinal: Abdomen is soft and non-tender, no masses, bowel sounds normal Neurological: A&O, moves all extremities, hand tremor, tongue wag is present Skin: Warm and dry, no rashes Musculoskeletal: Neck is supple non tender Extremities: symmetrical, full range of motion Psychiatric: Patient is oriented X 3, there is no agitation Source: Patient, EMS Exam Limitations: No limitations - Personal History Current Tetanus Diphtheria and Acellular Pertussis (TDAP): Unsure - Medical/Surgical History Hx Asthma: No Hx Chronic Respiratory Disease: No Hx Diabetes: No Hx Cardiac Disease: No Hx Renal Disease: No Hx Cirrhosis: No Hx Alcoholism: Yes Hx HIV/AIDS: No Hx Splenectomy or Spleen Trauma: No Other PMH: alcoholism - Social History Smoking Status: Current every day smoker Constitutional: Initial Vital Signs Temperature (C) 37.4 C 12/23/16 21:59 Heart Rate 88 12/23/16 21:59 Respiratory Rate 16 12/23/16 21:59 Blood Pressure 123/84 H 12/23/16 21:59 O2 Sat (%) 92 12/23/16 21:59 O2 Delivery Mode Room Air O2 (L/minute) 2 Allergies/Adverse Reactions: No Known Allergies Allergy (Verified 10/28/16 02:29) Home Medications: Medication Instructions Recorded NK [No Known Home Meds] 06/23/16 Medical Decision Making ED Course/Re-evaluation: The patient was monitored in the emergency room and given a L of normal saline. When labs returned revealing what is likely mild alcoholic ketoacidosis, he was started on D 50 normal saline. Labs were checked and did reveal elevated liver tests which I attribute to his chronic alcohol abuse. He did not have any abdominal tenderness and lipase was normal. He received a total of 2 mg of Ativan with improvement in his symptoms. He was given a Librium pill pack and was [facility] to [facility] after he was observed walking with a steady gait. Differential Diagnosis: This is a 46-year-old homeless man with chronic alcohol abuse and history of withdrawal, with frequent visits to this emergency room who presents today with tremors and concern for alcohol withdrawal. His last drink was early this morning, stop drinking because he ran out of money. On exam, he is not tachycardic nor hypertensive. He does have a hand tremor and feels anxious. I will treat him with Ativan and IV fluids here. I will check basic labs. Differential diagnosis includes alcohol withdrawal, polysubstance abuse, alcohol intoxication, alcoholic ketoacidosis. - Data Points Laboratory Results: Laboratory Results 12/23/16 22:10 12/23/16 22:30 12/23/16 12/23/16 22:30 22:10 WBC 8.89 10^3/uL 10^3/uL (3.80-9.50) RBC 4.22 10^6/uL L 10^6/uL (4.40-6.38) Hgb 14.3 g/dL g/dL (13.7-17.5) Hct 39.1 % L % (40.0-51.0) MCV 92.7 fL fL (81.5-99.8) MCH 33.9 pg pg (27.9-34.1) MCHC 36.6 g/dL g/dL (32.4-36.7) RDW 12.5 % % (11.5-15.2) Plt Count 68 10^3/uL L 10^3/uL (150-400) MPV 9.0 fL fL (8.7-11.7) Neut % (Auto) 84.1 % H % (39.3-74.2) Lymph % (Auto) 5.7 % L % (15.0-45.0) Mathews % (Auto) 8.5 % % (4.5-13.0) Eos % (Auto) 0.9 % % (0.6-7.6) Baso % (Auto) 0.2 % L % (0.3-1.7) Nucleat RBC Rel Count 0.0 % % (0.0-0.2) Absolute Neuts (auto) 7.47 10^3/uL H 10^3/uL (1.70-6.50) Absolute Lymphs (auto) 0.51 10^3/uL L 10^3/uL (1.00-3.00) Absolute Monos (auto) 0.76 10^3/uL 10^3/uL (0.30-0.80) Absolute Eos (auto) 0.08 10^3/uL 10^3/uL (0.03-0.40) Absolute Basos (auto) 0.02 10^3/uL 10^3/uL (0.02-0.10) Absolute Nucleated RBC 0.00 10^3/uL 10^3/uL (0-0.01) Immature Gran % 0.6 % % (0.0-1.1) Immature Gran # 0.05 10^3/uL 10^3/uL (0.00-0.10) Sodium 131 mEq/L L mEq/L (134-144) Potassium 4.0 mEq/L mEq/L (3.5-5.2) Chloride 88 mEq/L L mEq/L (97-110) Carbon Dioxide 26 mEq/l mEq/l (22-31) Anion Gap 17 mEq/L H mEq/L (8-16) BUN 12 mg/dL mg/dL (7-23) Creatinine 0.7 mg/dL mg/dL (0.7-1.3) Estimated GFR > 60 Glucose 126 mg/dL H mg/dL (70-100) Calcium 8.7 mg/dL mg/dL (8.5-10.4) Total Bilirubin 2.4 mg/dL H mg/dL (0.1-1.4) Conjugated Bilirubin 0.7 mg/dL H mg/dL (0.0-0.5) Unconjugated Bilirubin 1.7 mg/dL H mg/dL (0.0-1.1) AST 256 IU/L H IU/L (17-59) ALT 175 IU/L H IU/L (21-72) Alkaline Phosphatase 70 IU/L IU/L (38-126) Total Protein 7.7 g/dL g/dL (6.3-8.2) Albumin 4.8 g/dL g/dL (3.5-5.0) Lipase 121.0 IU/L IU/L (23-300) Ethyl Alcohol 128 mg/dL H mg/dL (0-10) Medications Given: Discontinued Medications Chlordiazepoxide (Librium 25 Mg Prepack#6) 1 btl TAKEHOME EDNOW ONE Stop: 12/24/16 01:24 Last Admin: 12/24/16 01:29 Dose: 1 btl Sodium Chloride (Ns) 1,000 mls @ 0 mls/hr IV ONCE ONE PRN Reason: Wide Open Stop: 12/23/16 22:38 Last Admin: 12/23/16 22:43 Dose: 1,000 mls Dextrose/Sodium Chloride (D5w Ns) 1,000 mls @ 250 mls/hr IV CONT AUDRA Stop: 06/21/17 23:14 Last Admin: 12/23/16 23:30 Dose: 1,000 mls Lorazepam (Ativan Injection) 1 mg IVP EDNOW ONE Stop: 12/23/16 22:53 Last Admin: 12/23/16 22:55 Dose: 1 mg Lorazepam (Ativan Injection) 1 mg IVP EDNOW ONE Stop: 12/23/16 23:40 Last Admin: 12/23/16 23:45 Dose: 1 mg Departure - Departure Disposition: Home, Routine, Self-Care Instructions: Chlordiazepoxide (By mouth), Alcohol Intoxication (ED), Abuse of Alcohol (ED) Referrals: [facility] 24 Hours [Outside] - As per Instructions
[2016-12-23 22:43] LABS: % IMMATURE GRANULYOCYTES 0.6 % (0.0-1.1); ABSOLUTE IMMATURE GRANULOCYTES 0.05 10^3/uL (0.00-0.10); ADD DIFF? NO; ADD MORPH? NO; ADD SCAN? NO; ATYPICAL LYMPHOCYTE FLAG 0 (0-99); FRAGMENT RBC FLAG 0 (0-99); HEMATOCRIT 39.1 % (40.0-51.0); HEMOGLOBIN 14.3 g/dL (13.7-17.5); LEFT SHIFT FLG 0 (0-99); LIPEMIA HEMOLYSIS FLAG 90 (0-99); MEAN CELL HEMOGLOBIN 33.9 pg (27.9-34.1); MEAN CELL HEMOGLOBIN CONCENTR. 36.6 g/dL (32.4-36.7); MEAN CELL VOLUME 92.7 fL (81.5-99.8); PLATELET CLUMPS FLAG 10 (0-99); PLATELET COUNT 68 10^3/uL (150-400); RED BLOOD CELL COUNT 4.22 10^6/uL (4.40-6.38); RED CELL DISTRIBUTION WIDTH 12.5 % (11.5-15.2)
[2016-12-23] MEDS ORDERED: LORazepam 2 MG/ML INJ IVP ONE ×2 (22:52→23:39)
[2016-12-23 23:06] LABS: ALANINE AMINOTRANSFERASE 175 IU/L (21-72); ALBUMIN 4.8 g/dL (3.5-5.0); ALKALINE PHOSPHATASE 70 IU/L (38-126); ANION GAP 17 mEq/L (8-16); ASPARTATE AMINOTRANSFERASE 256 IU/L (17-59); BILIRUBIN,TOTAL 2.4 mg/dL (0.1-1.4); CALCIUM 8.7 mg/dL (8.5-10.4); CARBON DIOXIDE 26 mEq/l (22-31); CHLORIDE 88 mEq/L (97-110); CREATININE 0.7 mg/dL (0.7-1.3); ETHANOL SERUM 128 mg/dL (0-10); GLOMERULAR FILTRATION RATE > 60; GLUCOSE 126 mg/dL (70-100); SODIUM 131 mEq/L (134-144); TOTAL PROTEIN 7.7 g/dL (6.3-8.2)
[2016-12-23 23:12] LABS: BILIRUBIN-CONJUGATED 0.7 mg/dL (0.0-0.5); BILIRUBIN-UNCONJUGATED 1.7 mg/dL (0.0-1.1)
[2016-12-23] MEDS ORDERED: D5W NS 1,000 ML IV SCH (23:15)
[2016-12-24] MEDS ORDERED: CHLORDIAZEPOXIDE 25MG PREPK#6 BTL TAKEHOME ONE (01:23)
[2016-12-24 01:53] VITALS: BP 132/80; PULSE 81; RESP 16; TEMP 97.9; O2SAT 96
== END 2016-12-24 01:53 | disposition home or self-care (01) ==
LOC: EDUNIT#
DX: E87.2 Acidosis (principal); F10.239 Alcohol dependence with withdrawal, unspecified; R74.0 Nonspecific elevation of levels of transaminase and lactic acid dehydrogenase [LDH]; F17.200 Nicotine dependence, unspecified, uncomplicated
CPT/HCPCS: 96365; 96366; G0480; J2060